=== PATIENT | female | born 1975 | race American Indian/Alaskan Native ===

== ENCOUNTER 2019-08-31 18:32 | Emergency (ER) | payer SELFPAY ==
[2019-08-31 19:21] VITALS: BP 129/81
--- NOTE | 2019-08-31 20:19 | XRay Report ---
RIGHT ANKLE 3 VIEWS INDICATION / CLINICAL INFORMATION: Fall 2 days ago with right ankle pain and swelling. COMPARISON: None available. FINDINGS: BONES / JOINT(S): The joint spaces are well-maintained. There is no evidence of fracture or dislocati on. There is a tiny plantar calcaneal spur. SOFT TISSUES: Moderate generalized soft tissue swelling is present. ADDITIONAL FINDINGS: None. IMPRESSION: Generalized soft tissue swelling without acute osseous abnormality. Signer Name: Richard Dewey MD Signed: 08/31/2019 8:14 PM Workstation Name: [id number]
[2019-08-31] MEDS ORDERED: HYDROcodone/ACETAMINOPHEN 5-325 MG TAB PO ONE (21:08)
--- NOTE | 2019-08-31 21:43 | Emergency Department Report ---
ED Lower Extremity HPI - General Chief Complaint: Extremity Injury, Lower Stated Complaint: ANKLE PAIN Time Seen by Provider: 08/31/19 21:07 Source: patient Mode of arrival: Ambulatory Limitations: No Limitations - History of Present Illness Initial Comments: Mrs. Thapa is a 44-year-old Afro-[place] female who presents for right ankle pain and swelling status post fall down 3 steps today. There was no prodromal event. Patient states pain is 7/10 sharp aching exacerbated by attempted weightbearing. She is unable to bear weight at this time. There is no numbness or tingling. No gross deformity. There is no abrasion laceration. MD Complaint: ankle injury Onset/Timin -: hour(s) Injury: Ankle: Right Type of Injury: eversion Place: street/outdoors Severity: moderate Severity scale (0 -10): 7 Improves With: nothing Worsens With: weight bearing, movement, palpation Context: fall Associated Symptoms: snap/pop sensation, swelling, unable to bear weight. denies: numbness, tingling - Related Data Previous Rx's Medication Instructions Recorded Last Taken Type traMADoL [Ultram] 50 mg PO Q6HR PRN #12 tablet 08/31/19 Unknown Rx Allergies Allergy/AdvReac Type Severity Reaction Status Date / Time No Known Allergies Allergy Unverified 08/31/19 19:21 ED Review of Systems ROS: Stated complaint: ANKLE PAIN Other details as noted in HPI Constitutional: denies: chills, fever Eyes: denies: eye pain, eye discharge, vision change ENT: denies: ear pain, throat pain Respiratory: denies: cough, shortness of breath, wheezing Cardiovascular: denies: chest pain, palpitations Endocrine: no symptoms reported Gastrointestinal: denies: abdominal pain, nausea, diarrhea Genitourinary: denies: urgency, dysuria, discharge Musculoskeletal: other (ankle pain ). denies: back pain, joint swelling, arthralgia Skin: denies: rash, lesions Neurological: denies: headache, weakness, paresthesias Psychiatric: denies: anxiety, depression Hematological/Lymphatic: denies: easy bleeding, easy bruising ED Past Medical Hx - Past Medical History Previous Medical History?: No - Surgical History Past Surgical History?: No - Social History Smoking Status: Never Smoker Substance Use Type: None - Medications Home Medications: Home Medications Medication Instructions Recorded Confirmed Last Taken Type traMADoL [Ultram] 50 mg PO Q6HR PRN #12 tablet 08/31/19 Unknown Rx ED Physical Exam - General Limitations: No Limitations General appearance: alert, in no apparent distress - Head Head exam: Present: atraumatic, normocephalic - Eye Eye exam: Present: normal appearance, PERRL, EOMI Pupils: Present: normal accommodation - ENT ENT exam: Present: mucous membranes moist - Neck Neck exam: Present: normal inspection, full ROM. Absent: tenderness - Respiratory Respiratory exam: Present: normal lung sounds bilaterally. Absent: respiratory distress, wheezes, stridor, chest wall tenderness - Cardiovascular Cardiovascular Exam: Present: regular rate, normal rhythm, normal heart sounds. Absent: systolic murmur, diastolic murmur, rubs, gallop - GI/Abdominal GI/Abdominal exam: Present: soft, normal bowel sounds - Rectal Rectal exam: Present: deferred - Extremities Exam Extremities exam: Present: tenderness, normal capillary refill, joint swelling (right ankle ) - Expanded Lower Extremity Exam Right Ankle exam: Present: tenderness (right lateral tong tenderness, moderate swelling , pain with rotation), swelling. Absent: abrasion, laceration, ecchymosis, deformity, crepidus, dislocation, erythema, anterior draw sign Foot/Toe exam: Present: full ROM, swelling. Absent: tenderness Neuro vascular tendon exam: Absent: pulse deficit, motor deficit, sensory deficit, tendon deficit, foot drop Gait: Positive: unable to bear weight - Back Exam Back exam: Present: normal inspection. Absent: tenderness, muscle spasm, paraspinal tenderness, vertebral tenderness - Neurological Exam Neurological exam: Present: alert, oriented X3, CN II-XII intact, reflexes normal. Absent: motor sensory deficit - Expanded Neurological Exam Expanded Patient oriented to: Present: person, place, time Speech: Present: fluid speech Motor strength exam: RUE: 5, LUE: 5, RLE: 5, LLE: 5 DTR: ankle (R): 2+, ankle (L): 2+ Best Eye Response (Cipriano): (4) open spontaneously Best Motor Response ([place]): (6) obeys commands Best Verbal Response (Cipriano): (5) oriented Cipriano Total: 15 - Psychiatric Psychiatric exam: Present: normal affect, normal mood - Skin Skin exam: Present: warm, dry, intact, normal color. Absent: rash ED Course Vital Signs 08/31/19 08/31/19 19:18 21:27 Temperature 97.6 F Pulse Rate 97 H Respiratory 18 18 Rate Blood Pressure 129/81 O2 Sat by Pulse 96 Oximetry ED Lower Extremity MDM - Radiology Data Radiology results: report reviewed, image reviewed Referring Physician: AAKASH RODARTE Patient Name: DEA THAPA Date of : 1975 Sex: Female Report Date: 2019-08-31 Report Status: Finalized Findings [facility] [address] [place] [address] XRay Report Signed Patient: DEA THAPA MR#: [id number] : 1975 Acct:[id number] Age/Sex: 44 / F ADM Date: 08/31/19 Loc: ED Attending Dr: Ordering Physician: AAKASH RODARTE MD Date of Service: 08/31/19 Procedure(s): XR ankle 3+V RT Accession Number(s): [id number] cc: AAKASH RODARTE MD Fluoro Time In Minutes: RIGHT ANKLE 3 VIEWS INDICATION / CLINICAL INFORMATION: Fall 2 days ago with right ankle pain and swelling. COMPARISON: None available. FINDINGS: BONES / JOINT(S): The joint spaces are well-maintained. There is no evidence of fracture or dislocation. There is a tiny plantar calcaneal spur. SOFT TISSUES: Moderate generalized soft tissue swelling is present. ADDITIONAL FINDINGS: None. IMPRESSION: Generalized soft tissue swelling without acute osseous abnormality. Signer Name: Sherrill Dewey MD Signed: 08/31/2019 8:14 PM Workstation Name: [id number] Transcribed By: RT Dictated By: Sherrill Dewey MD Electronically Authenticated By: Sherrill Dewey MD Signed Date/Time: 08/31/192013 DD/ 09 TD/TT: - Medical Decision Making X-ray negative for fracture moderate soft tissue swelling , treatment for ankle sprain. We'll provide ankle stirrup and crutches. Splint check is complete spiking spacing is appropriate patient demonstrates safe use of crutches. Plan DC to home in stable condition. rx for ultram, follow up with orthopedics in 2-3 days. Critical care attestation.: If time is entered above; I have spent that time in minutes in the direct care of this critically ill patient, excluding procedure time. ED Disposition Clinical Impression: Right ankle sprain Qualifiers: Encounter type: initial encounter Involved ligament of ankle: unspecified ligament Qualified Code(s): S93.401A - Sprain of unspecified ligament of right ankle, initial encounter Disposition: TO HOME OR SELFCARE Is pt being admited?: No Does the pt Need Aspirin: No Condition: Stable Instructions: Ankle Sprain (ED), Ankle Stirrup Splint (ED), Ankle Exercises (GEN), Crutch Instructions (ED), RICE Therapy (ED) Prescriptions: traMADoL [Ultram] 50 mg PO Q6HR PRN #12 tablet PRN Reason: Pain Referrals: SHERRILL PROCTOR MD [Staff Physician] - 3-5 Days Forms: Work/School Release Form(ED) Time of Disposition: 21:50
== END 2019-08-31 22:13 | disposition home or self-care (01) ==
LOC: ED 18:32
DX: S93.401A Sprain of unspecified ligament of right ankle, initial encounter (principal); Z79.899 Other long term (current) drug therapy; X58.XXXA Exposure to other specified factors, initial encounter; Y93.89 Activity, other specified; Y92.89 Other specified places as the place of occurrence of the external cause; Y99.8 Other external cause status

== ENCOUNTER 2021-08-13 08:32 | Emergency (ER) | payer SELFPAY ==
[2021-08-13] MEDS ORDERED: KETOROLAC 60 MG/2 ML INJ IM ONE ×2 (09:25→11:51)
[2021-08-13] MEDS ORDERED: dexAMETHasone 4 MG/ML VIAL IM STA ×2 (09:25→11:51)
--- NOTE | 2021-08-13 09:53 | Emergency Department Report ---
ED General Adult HPI - General Chief complaint: Headache Stated complaint: RIGHT FACE BURNING Time Seen by Provider: 08/13/21 09:23 Source: patient Mode of arrival: Ambulatory Limitations: No Limitations - History of Present Illness Initial comments: 46-year-old -[place] female patient without past medical history presents with complaints of right-sided facial tingling and burning for the past 5 days. She reports the symptoms started behind her right eye with burning and pain and seem to be worse at night. Patient reports last week she had flulike symptoms that resolved after a few days. She denies any weakness, difficulty with speech/ambulation, numbness/tingling/weakness in her limbs, or history of CVA. She does report a mild right-sided headache that is somewhat improved with ibuprofen and Tylenol. No head injuries or blood thinner use per patient. She also denies any vision changes or dizziness. - Related Data Previous Rx's Medication Instructions Recorded Last Taken Type traMADoL [Ultram] 50 mg PO Q6HR PRN #12 tablet 08/31/19 Unknown Rx Amoxicillin/Potassium Clav 1 each PO BID 7 Days #14 tab 08/13/21 Unknown Rx [Augmentin 875-125 Tablet] Prednisone [predniSONE 10 mg 10 mg PO .TAPER #1 pack 08/13/21 Unknown Rx (6-Day Pack, 21 Tabs)] Allergies Allergy/AdvReac Type Severity Reaction Status Date / Time No Known Allergies Allergy Unverified 08/31/19 19:21 ED Review of Systems ROS: Stated complaint: RIGHT FACE BURNING Other details as noted in HPI Constitutional: denies: chills, diaphoresis, fever, malaise, weakness ENT: denies: throat pain Respiratory: denies: cough, shortness of breath Cardiovascular: denies: chest pain ED Past Medical Hx - Social History Smoking Status: Never Smoker Substance Use Type: None - Medications Home Medications: Home Medications Medication Instructions Recorded Confirmed Last Taken Type traMADoL [Ultram] 50 mg PO Q6HR PRN #12 tablet 08/31/19 Unknown Rx Amoxicillin/Potassium Clav 1 each PO BID 7 Days #14 tab 08/13/21 Unknown Rx [Augmentin 875-125 Tablet] Prednisone [predniSONE 10 mg 10 mg PO .TAPER #1 pack 08/13/21 Unknown Rx (6-Day Pack, 21 Tabs)] ED Physical Exam - General Limitations: No Limitations General appearance: alert, in no apparent distress, obese - Head Head exam: Present: atraumatic, normocephalic - Eye Eye exam: Present: normal appearance. Absent: scleral icterus - Neck Neck exam: Present: normal inspection, full ROM. Absent: tenderness - Respiratory Respiratory exam: Present: normal lung sounds bilaterally. Absent: respiratory distress - Cardiovascular Cardiovascular Exam: Present: regular rate, normal rhythm - Neurological Exam Neurological exam: Present: alert, oriented X3, CN II-XII intact, normal gait. Absent: motor sensory deficit - Expanded Neurological Exam Expanded Speech: Present: fluid speech Cranial nerves: Facial Sensation: Abnormal Right (Increased sensation; painful to light touch), Facial Palsy with Forehead Movement: Normal Cerebellar function: Finger to Nose: Normal, Heel to Jose: Normal, Romberg: Normal Sensory exam: Upper Extremity Light Touch: Normal, Lower Extremity Light Touch: Normal Motor strength exam: RUE: 4, LUE: 4, RLE: 4, LLE: 4 Best Eye Response (Cipriano): (4) open spontaneously Best Motor Response (Cipriano): (6) obeys commands Best Verbal Response ([place]): (5) oriented [place] Total: 15 - Psychiatric Psychiatric exam: Present: normal affect, normal mood - Skin Skin exam: Present: warm, dry, intact, normal color. Absent: rash ED Course Vital Signs 08/13/21 09:03 Temperature 98.7 F Pulse Rate 94 H Respiratory 20 Rate Blood Pressure 152/105 O2 Sat by Pulse 100 Oximetry ED Medical Decision Making - Radiology Data Radiology results: report reviewed CT HEAD WITHOUT CONTRAST INDICATION / CLINICAL INFORMATION: right sided headache, right facial tingling . TECHNIQUE: Axial imaging performed from the skull apex through the skull base without the use of contrast. Sagittal and coronal reformatted images. All CT scans at this location are performed using CT dose reduction for ALARA by means of automated exposure control. COMPARISON: None available. FINDINGS: CEREBRAL PARENCHYMA: No significant abnormality. No acute territorial infarct. HEMORRHAGE: None. EXTRA-AXIAL SPACES: Normal in size and morphology for the patient's age. VENTRICULAR SYSTEM: Normal in size and morphology for the patient's age. MIDLINE SHIFT OR HERNIATION: None. CEREBELLUM / BRAINSTEM: No significant abnormality. CALVARIUM: No significant abnormality. ORBITS: Normal as visualized. PARANASAL SINUSES / MASTOID AIR CELLS: There is moderate mucosal thickening in the inferior maxillary sinuses. Trace fluid in the right maxillary sinus. Mild mucosal thickening is noted in the ethmoid air cells and sphenoid sinuses. The frontal sinuses did not develop. The mastoid air cells are clear. SOFT TISSUES of HEAD: No significant abnormality. ADDITIONAL FINDINGS: None. IMPRESSION: Unremarkable CT brain without contrast. Sinus disease as described above which is likely chronic. Correlate for acute symptoms. - Medical Decision Making 46-year-old -[place] female patient without past medical history presents with complaints of right-sided facial tingling and burning for the past 5 days. She reports the symptoms started behind her right eye with burning and pain and seem to be worse at night. Patient reports last week she had flulike symptoms that resolved after a few days. She denies any weakness, difficulty with speech/ambulation, numbness/tingling/weakness in her limbs, or history of CVA. She does report a mild right-sided headache that is somewhat improved with ibuprofen and Tylenol. No head injuries or blood thinner use per patient. She also denies any vision changes or dizziness. Neuro exam is normal. Patient has palpable tenderness to the right upper face CT is negative for intracranial abnormality, however shows right sinus infection. We will treat for sinusitis with prednisone and Augmentin. Recommend follow-up with PCP within 3 days for recheck of her blood pressure and -further evaluation of her blood pressure. Discussed in detail signs and symptoms that should prompt immediate return to ED with patient who verbalized understanding Critical care attestation.: If time is entered above; I have spent that time in minutes in the direct care of this critically ill patient, excluding procedure time. ED Disposition Clinical Impression: Right maxillary sinusitis, Elevated blood pressure reading without diagnosis of hypertension Disposition: 01 HOME / SELF CARE / HOMELESS Is pt being admited?: No Condition: Stable Instructions: Sinusitis, Adult, [id number], Hypertension, Adult, [id number] Prescriptions: Amoxicillin/Potassium Clav [Augmentin 875-125 Tablet] 1 each PO BID 7 Days #14 tab Prednisone [predniSONE 10 mg (6-Day Pack, 21 Tabs)] 10 mg PO .TAPER #1 pack Referrals: [facility] [Provider Group] - 3-5 Days PRIMARY CARE, [Primary Care Provider] - 2-3 Days Forms: Work/School Release Form(ED)
--- NOTE | 2021-08-13 10:41 | Cat Scan Report ---
CT HEAD WITHOUT CONTRAST INDICATION / CLINICAL INFORMATION: right sided headache, right facial tingling . TECHNIQUE: Axial imaging performed from the skull apex through the skull base without the use of cont rast. Sagittal and coronal reformatted images. All CT scans at this location are performed using CT dose reduction for ALARA by means of automated exposure control. COMPARISON: None available. FINDINGS: CEREBRAL PARENCHYMA: No significant abnormality. No acute territorial infarct. HEMORRHAGE: None. EXTRA-AXIAL SPACES: Normal in size and morphology for the patient's age. VENTRICULAR SYSTEM: Normal in size and morphology for the patient's age. MIDLINE SHIFT OR HERNIATION: None. CEREBELLUM / BRAINSTEM: No significant abnormality. CALVARIUM: No significant abnormality. ORBITS: Normal as visualized. PARANASAL SINUSES / MASTOID AIR CELLS: There is moderate mucosal thickening in the inferior maxillary sinuses. Trace fluid in the right maxillary sinus. Mild mucosal thickening is noted in the ethmoid a ir cells and sphenoid sinuses. The frontal sinuses did not develop. The mastoid air cells are clear. SOFT TISSUES of HEAD: No significant abnormality. ADDITIONAL FINDINGS: None. IMPRESSION: Unremarkable CT brain without contrast. Sinus disease as described above which is likely chronic. Correlate for acute symptoms. Signer Name: Bal Logan Jr, MD Signed: 08/13/2021 10:36 AM Workstation Name: [id number]
[2021-08-13 12:06] VITALS: BP 130/87
== END 2021-08-13 12:05 | disposition home or self-care (01) ==
LOC: ED 08:32
DX: J32.0 Chronic maxillary sinusitis (principal); R03.0 Elevated blood-pressure reading, without diagnosis of hypertension
CPT/HCPCS: 70450; 82962; 96372; 99283; J1100; J1885